=== PATIENT | female | born 2000 | race Caucasian/White ===

== ENCOUNTER → 2019-11-12 | Outpatient (CLI) | payer BC | LOC: COL.RAD 08:09 | DX: M19.012 Primary osteoarthritis, left shoulder (principal) | CPT/HCPCS: A9585; Q9967 ==

== ENCOUNTER → 2020-07-21 | Outpatient (CLI) | payer BC | LOC: COL.LAB 08:21 | DX: Z01.812 Encounter for preprocedural laboratory examination (principal); Z20.828 Contact with and (suspected) exposure to other viral communicable diseases ==

== ENCOUNTER 2022-06-19 19:04 | Emergency (ER) | payer OTHER ==
[~2022-06-19] VITALS: Ht 167.6 cm; Wt 125.0 kg
[2022-06-19 19:19] VITALS: TEMP 98
[2022-06-19 20:15] LABS: COLLECTION METHOD CLEAN CATCH
[2022-06-19 20:20] LABS: BASO # 0.1 K/mm3 (0.0-0.2); BASO % 0.3 % (0.0-2.0); EOS # 0.5 K/mm3 (0.0-0.7); GRAN # 9.9 K/mm3 (1.4-6.5); GRAN % 66.6 % (42.2-75.2); HEMATOCRIT 45.5 % (37.0-47.0); HEMOGLOBIN 14.6 g/dl (12.5-16.0); LYMPH # 3.5 K/mm3 (1.2-3.4); LYMPH % 23.2 % (20.0-51.0); MEAN CELL VOLUME 90 fl (80.0-100.0); MEAN CORPUSCULAR HEMOGLOBIN 29 pg (27-31); MEAN CORPUSCULAR HGB CONC 32 g/dl (33.0-37.0); MEAN PLATELET VOLUME 8.9 fl (7.4-10.4); MONO # 0.9 K/mm3 (0.1-0.6); PLATELET COUNT 272 K/mm3 (130-400); RED BLOOD COUNT 5.06 M/mm3 (4.10-5.30); REDCELL DISTRIBUTION WIDTH-CV 13.7 % (11.5-14.5)
[2022-06-19 20:23] LABS: MUCOUS Present (NOT PRESENT); SQUAMOUS EPITHELIAL 0-2 /hpf (0-10); URINE BACTERIA None Seen /hpf (NONE SEEN); URINE RBC 0-2 /hpf (0-2)
[2022-06-19 20:24] LABS: URINE APPEARANCE Clear (CLEAR/HAZY); URINE COLOR Yellow (YELLOW)
[2022-06-19 20:25] LABS: URINE BLOOD Negative (NEGATIVE); URINE GLUCOSE Negative (NEGATIVE); URINE KETONE Negative (NEGATIVE); URINE NITRATE Negative (NEGATIVE); URINE PROTEIN(semi-quant) Negative (NEGATIVE); URINE UROBILINOGEN 0.2 E.U/dL (0.2-1.0)
[2022-06-19 21:43] VITALS: BP 140/78; PULSE 76
== END 2022-06-19 21:43 | disposition home or self-care (01) ==
LOC: COL.ER 19:04
PROVIDERS: Nurse Practitioner
DX: O26.891 Other specified pregnancy related conditions, first trimester (principal); R10.2 Pelvic and perineal pain; Z28.310 Unvaccinated for COVID-19; Z3A.00 Weeks of gestation of pregnancy not specified